=== PATIENT | female | born 1935 | race African-American/Black ===

== ENCOUNTER 2016-08-12 08:45 | Outpatient (RCR) | payer OTHER | END 2016-08-15 | disposition home or self-care (01) | LOC: PTY 08:45 | PROVIDERS: ATTEND Internal Medicine | DX: M25.561 Pain in right knee (principal); G89.29 Other chronic pain; M25.511 Pain in right shoulder | CPT/HCPCS: 97035; 97140; 97162; G0283 ==

== ENCOUNTER 2016-08-19 08:40 | Outpatient (RCR) | payer OTHER | END 2016-09-14 | disposition home or self-care (01) | LOC: PTY 08:40 | PROVIDERS: ATTEND Internal Medicine | DX: M25.561 Pain in right knee (principal); G89.29 Other chronic pain | CPT/HCPCS: 97035; 97110; 97140; G0283 ==

== ENCOUNTER 2016-09-16 08:00 | Outpatient (RCR) | payer OTHER | END 2016-10-15 | disposition home or self-care (01) | LOC: PTY 08:00 | PROVIDERS: ATTEND Internal Medicine | DX: M25.561 Pain in right knee (principal); G89.29 Other chronic pain | CPT/HCPCS: 97035; 97110; 97140; G0283 ==

== ENCOUNTER 2016-10-16 08:32 | Outpatient (RCR) | payer OTHER | END 2016-11-14 | disposition home or self-care (01) | LOC: PTY 08:32 | PROVIDERS: ATTEND Internal Medicine | DX: M25.561 Pain in right knee (principal); G89.29 Other chronic pain | CPT/HCPCS: 97035; 97110; 97140; G0283 ==

== ENCOUNTER 2016-11-19 09:25 | Outpatient (RCR) | payer OTHER | END 2016-12-15 | disposition home or self-care (01) | LOC: PTY 09:25 | PROVIDERS: ATTEND Internal Medicine | DX: M25.561 Pain in right knee (principal); G89.29 Other chronic pain | CPT/HCPCS: 97110; 97140; G0283 ==